=== PATIENT | male | born 2005 | race Caucasian/White ===

== ENCOUNTER 2024-05-02 17:24 | Emergency (ER) | payer OTHER ==
[~2024-05-02] VITALS: Ht 172.7 cm; Wt 78.1 kg
[2024-05-02] MEDS: LIDOCAINE 1% MDV 20ML VIAL IM ONE (19:20)
[2024-05-02] MEDS: CEPHALEXIN 500 MG CAP PO ONE (19:22)
[2024-05-02] MEDS ORDERED: CEPH500T PO (19:34)
[2024-05-02 19:42] VITALS: BP 141/82; TEMP 97.3; O2SAT 100
== END 2024-05-02 19:43 | disposition home or self-care (01) ==
LOC: M ED 17:24
DX: S01.01XA Laceration without foreign body of scalp, initial encounter (principal); Y92.9 Unspecified place or not applicable; Y93.9 Activity, unspecified; Y99.0 Civilian activity done for income or pay; Z79.2 Long term (current) use of antibiotics